=== PATIENT | female | born 1965 | race Two or more races ===

== ENCOUNTER 2025-02-16 16:46 | Inpatient (IN) | payer OTHER ==
[2025-02-16] VITALS (17 sets, daily range): BP systolic 75–131; BP diastolic 48–114; TEMP 97.9; O2SAT 76–92
[~2025-02-16] VITALS: Ht 160 cm; Wt 45.4 kg
[2025-02-16] MEDS ORDERED: ONDANSETRON HCL/PF 4 MG/2 ML VIAL ONE (16:53)
[2025-02-16] MEDS ORDERED: NOREPINEPHRINE 8MG/250ML RTU 250 ML IV ONE (16:54)
[2025-02-16] MEDS: IV NS 0.9% 500 ML BAG IV ONE (16:55)
[2025-02-16] MEDS: NOREPINEPHRINE 8 MG in IV NS 0.9% 250 ML IV ONE (17:00)
[2025-02-16] MEDS ORDERED: CEFTRIAXONE 1 G in IV D5W 50 ML IV ONE (17:00)
[2025-02-16] MEDS ORDERED: PANTOPRAZOLE 80 MG in IV NS 0.9% 500 ML IV ONE (17:00)
[2025-02-16] MEDS: ONDANSETRON HCL/PF - ER 4 MG/2 ML VIAL IV ONE (17:05)
[2025-02-16 17:42] LABS: PLATELET COUNT (AUTO) 318 K/uL (150-450); RED BLOOD CELL COUNT(AUTO) 3.03 MIL/uL (4.0-5.2); RED CELL DISTRIBUTION WIDTH 22.0 % (11.5-15.0); WHITE BLOOD COUNT (AUTO) 28.2 K/uL (4.3-11.0)
[2025-02-16] MEDS: PIPERACILLIN /TAZOBACTAM 3.375 G in IV D5W 50 ML IV ONE (17:45)
[2025-02-16] MEDS ORDERED: ACETAMINOPHEN 650 MG/SUPP.RECT RC ONE (17:46)
[2025-02-16 17:49] LABS: CALCIUM, SERUM 7.5 mg/dL (8.5-10.1); CREATININE 4.1 mg/dL (0.6-1.3); SODIUM SERUM 146 mmol/L (136-145)
[2025-02-16 17:50] LABS: UREA NITROGEN, BLOOD 101 mg/dL (7-18)
[2025-02-16] MEDS: ACETAMINOPHEN 650 MG/SUPP.RECT RC ONE (17:50)
[2025-02-16] MEDS: PANTOPRAZOLE 80 MG in IV NS 0.9% 500 ML IV ONE (17:50)
[2025-02-16 17:51] LABS: INR 1.08 (0.91-1.10)
[2025-02-16 17:54] LABS: ASPARTATE AMINOTRANSFERASE 15 U/L (15-37); TOTAL PROTEIN, SERUM 4.7 g/dL (6.4-8.2)
[2025-02-16 17:55] LABS: LACTIC ACID 1.3 mmol/L (0.4-2.0)
[2025-02-16] MEDS: VANCOMYCIN 1 GM in IV D5W 250 ML IV ONE (18:20)
[2025-02-16] MEDS ORDERED: MAGNESIUM HYDROXIDE 30 ML UDC PO PRN (18:30)
[2025-02-16] MEDS ORDERED: Z GUARD REMEDY 4 OZ OINT TP PRN (18:30)
[2025-02-16] MEDS ORDERED: DOSING PER PHARMACY-CEFEPIME IVPB XX PRN (18:30)
[2025-02-16] MEDS ORDERED: MAG HYDROX/AL HYDROX/SIMETH 30 ML UDC PO PRN (18:30)
[2025-02-16] MEDS ORDERED: DOSING PER PHARMACY-VANCOMYCIN IV IV PRN (19:00)
[2025-02-16] MEDS ORDERED: CARV25TA2 PO (19:06)
[2025-02-16] MEDS ORDERED: PANT40TA49 PO (19:06)
[2025-02-16] MEDS ORDERED: TIOT18CA3 INH (19:06)
[2025-02-16] MEDS ORDERED: ATOR40TA PO (19:06)
[2025-02-16] MEDS ORDERED: FOLI0.8T23 PO (19:06)
[2025-02-16] MEDS ORDERED: ZINC220C6 PO (19:06)
[2025-02-16] MEDS ORDERED: ASCO500T10 PO (19:06)
[2025-02-16] MEDS ORDERED: SUCR1TAB PO (19:06)
[2025-02-16] MEDS ORDERED: ONDA-97 PO ×2 (19:06)
[2025-02-16] MEDS ORDERED: BISA10SU11 RC (19:06)
[2025-02-16] MEDS ORDERED: POLY17PO4 PO (19:06)
[2025-02-16 19:16] LABS: ABG BASE EXCESS -5.3 mmol/L (-2.0-3.0); ABG OXYGEN SATURATION 91.6 % (94.0-98.0); ABG PCO2 26.9 mmHg (32.0-45.0); ABG PH 7.437 (7.350-7.450); ABG PO2 66.0 mmHg (83.0-108.0); ABG TOTAL HEMOGLOBIN 10.7 G/dL (12.0-16.0); FLOW, BLOOD GAS 0.00 L/min (0.00-30.00); FRACTIONATED INSPIRED OXYGEN 21.0 %; SITE, ABG RIGHT BRACHIAL
[2025-02-16 21:28] LABS: PLATELET COUNT (AUTO) 328 K/uL (150-450); RED BLOOD CELL COUNT(AUTO) 3.73 MIL/uL (4.0-5.2); RED CELL DISTRIBUTION WIDTH 21.1 % (11.5-15.0)
[2025-02-16 21:35] LABS: WHITE BLOOD COUNT (AUTO) 32.2 K/uL (4.3-11.0)
[2025-02-16] MEDS: NOREPINEPHRINE 8 MG in IV NS 0.9% 242 ML IV PRN (21:37)
[2025-02-16] MEDS: PANTOPRAZOLE 40 MG VIAL IV SCH (22:21)
[2025-02-16] MEDS: CEFEPIME 1 GM in IV D5W 50 ML IV SCH (22:21)
[2025-02-16] MEDS: BLOOD SUGAR DIAGNOSTIC 1 EACH STRIP VI SCH (22:27)
[2025-02-16] MEDS: DEXTROSE 50%-WATER 50 ML DISP.SYRIN IV PRN (22:34)
[2025-02-16] MEDS: PHENYLEPHRINE 100 MG in IV NS 0.9% 240 ML IV PRN (23:32)
[2025-02-16] MEDS: PHENYLEPHRINE 10 MG/ML VIAL ONE (23:48)
[2025-02-16] MEDS: AMIODARONE 150 MG in IV D5W 100 ML IV ONE (23:50)
[2025-02-16] MEDS: AMIODARONE 150 MG/3 ML VIAL IV ONE (23:51)
[2025-02-17] VITALS (75 sets, daily range): BP systolic 52–132; BP diastolic 31–80; TEMP 97.6–98.2; O2SAT 84–100
[2025-02-17] MEDS: AMIODARONE 450 MG in IV D5W 241 ML IV PRN (00:08)
[2025-02-17] MEDS: AMIODARONE 150 MG/3 ML VIAL IV ONE (00:09)
[2025-02-17] MEDS: ALBUMIN 25% 12.5 GM/50 ML BOTTLE IV ONE (00:42)
[2025-02-17] MEDS: VASOPRESSIN INJ 20 UNIT/ML VIAL ONE (01:04)
[2025-02-17] MEDS: VASOPRESSIN INJ 40 UNIT in IV NS 0.9% 38 ML IV PRN (01:07)
[2025-02-17 02:48] LABS: LYMPHOCYTES % (MANUAL) 14 % (16-48); MONOCYTES % (MANUAL) 3 % (0-11.0); NEUTROPHILS % (MANUAL) 83 (42-76); PLATELET ESTIMATE ADEQUATE
[2025-02-17 07:31] LABS: PLATELET COUNT (AUTO) 287 K/uL (150-450); RED BLOOD CELL COUNT(AUTO) 3.18 MIL/uL (4.0-5.2); RED CELL DISTRIBUTION WIDTH 21.0 % (11.5-15.0); WHITE BLOOD COUNT (AUTO) 28.9 K/uL (4.3-11.0)
[2025-02-17 07:33] LABS: CALCIUM, SERUM 7.8 mg/dL (8.5-10.1); CREATININE 2.4 mg/dL (0.6-1.3); PHOSPHORUS 3.0 mg/dL (2.5-4.9); SODIUM SERUM 146.0 mmol/L (136-145); UREA NITROGEN, BLOOD 57.0 mg/dL (7-18)
[2025-02-17 07:41] LABS: INR 1.05 (0.91-1.10)
[2025-02-17] MEDS: HYDROCORTISONE SOD SUCCINATE 100 MG/2 ML VIAL IV SCH (08:16)
[2025-02-17] MEDS: THERAHONEY GEL 1.5 OZ TUBE TP SCH (09:09)
[2025-02-17 09:19] LABS: IRON, SERUM 51.0 ug/dl (50-175)
[2025-02-17 09:32] LABS: LDL 31.0 mg/dL (0-99)
[2025-02-17] MEDS: POTASSIUM CL. PREMIX PERIPHER. 50 ML IV SCH (10:06)
[2025-02-17 10:19] LABS: LYMPHOCYTES % (MANUAL) 12 % (16-48); MONOCYTES % (MANUAL) 5 % (0-11.0); NEUTROPHILS % (MANUAL) 83 (42-76)
[2025-02-17 10:20] LABS: PLATELET ESTIMATE ADEQUATE
[2025-02-17] MEDS: IV 10% DEXTROSE 1,000 ML IV PRN (12:09)
[2025-02-17] MEDS: *INSULIN REGULAR(HUMULIN R)HUM 100 UNIT/ML VIAL SQ PRN (12:18)
[2025-02-17 12:34] LABS: APPEARANCE,URINE CLOUDY (CLEAR); BLOOD, URINE 2+ Ery/uL (NEGATIVE); LEUKOCYTE ESTERASE ,URINE 2+ (NEGATIVE); NITRITE, URINE POSITIVE (NEGATIVE); UGLUCOSE NEGATIVE (NEGATIVE)
[2025-02-17 12:38] LABS: ADD URINE CULTURE YES; SQUAMOUS EPITHELIAL CELL,UR Few /HPF (None Seen); YEAST,URINE Many /HPF (None Seen)
[2025-02-17] MEDS: DAKINS QUARTER STRENGTH (0.125%) 480 ML BOTTLE TOP SCH (13:55)
[2025-02-17] MEDS ORDERED: MORPHINE SULFATE INJ 4 MG/ML DISP.SYRIN IV PRN (14:00)
[2025-02-17] MEDS: HYDROMORPHONE 1 MG/1 ML DISP.SYRIN IV PRN (14:29)
[2025-02-17] MEDS: MEROPENEM 500 MG in IV NS 0.9% 50 ML IV SCH (15:36)
[2025-02-18] VITALS (39 sets, daily range): BP systolic 90–135; BP diastolic 51–101; TEMP 97.6–97.9; O2SAT 95–100
[2025-02-18] MEDS: BLOOD SUGAR DIAGNOSTIC 1 EACH STRIP VI SCH (02:01)
[2025-02-18 06:38] LABS: PLATELET COUNT (AUTO) 136 K/uL (150-450); RED BLOOD CELL COUNT(AUTO) 2.63 MIL/uL (4.0-5.2); RED CELL DISTRIBUTION WIDTH 21.2 % (11.5-15.0); WHITE BLOOD COUNT (AUTO) 18.5 K/uL (4.3-11.0)
[2025-02-18 07:45] LABS: ASPARTATE AMINOTRANSFERASE 11.0 U/L (15-37); CALCIUM, SERUM 7.2 mg/dL (8.5-10.1); CREATININE 2.9 mg/dL (0.6-1.3); PHOSPHORUS 2.7 mg/dL (2.5-4.9); SODIUM SERUM 140.0 mmol/L (136-145); TOTAL PROTEIN, SERUM 4.5 g/dL (6.4-8.2); UREA NITROGEN, BLOOD 64.0 mg/dL (7-18)
[2025-02-18 08:27] LABS: LYMPHOCYTES % (MANUAL) 9 % (16-48); MONOCYTES % (MANUAL) 1 % (0-11.0); NEUTROPHILS % (MANUAL) 90 (42-76)
[2025-02-18 08:28] LABS: PLATELET ESTIMATE DECREASED
[2025-02-18] MEDS: AMIODARONE HCL 200 MG TABLET PO SCH (09:00)
[2025-02-18] MEDS: INSULIN REGULAR, HUMAN 100 UNIT/ML 3 ML VIAL SQ PRN (11:06)
[2025-02-18] MEDS: EPOETIN ALFA (10,000 UNIT) 10,000 UNIT/ML VIAL SQ SCH (15:00)
[2025-02-19] VITALS (17 sets, daily range): BP systolic 109–151; BP diastolic 67–87; TEMP 97.2–97.8; O2SAT 94–100
[2025-02-19] MEDS: IV 10% DEXTROSE 1,000 ML IV PRN (01:09)
[2025-02-19 04:49] LABS: CALCIUM, SERUM 7.6 mg/dL (8.5-10.1); CREATININE 2.9 mg/dL (0.6-1.3); SODIUM SERUM 139.0 mmol/L (136-145); UREA NITROGEN, BLOOD 68.0 mg/dL (7-18)
[2025-02-19 04:56] LABS: OCCULT BLOOD STOOL POSITIVE (NEGATIVE)
[2025-02-19 13:33] LABS: PLATELET COUNT (AUTO) 143 K/uL (150-450); RED BLOOD CELL COUNT(AUTO) 2.61 MIL/uL (4.0-5.2); RED CELL DISTRIBUTION WIDTH 21.6 % (11.5-15.0); WHITE BLOOD COUNT (AUTO) 19.7 K/uL (4.3-11.0)
[2025-02-19 14:12] LABS: LYMPHOCYTES % (MANUAL) 12 % (16-48); MONOCYTES % (MANUAL) 3 % (0-11.0); NEUTROPHILS % (MANUAL) 85 (42-76); PLATELET ESTIMATE DECREASED
[2025-02-20] MEDS: ACETAMINOPHEN 325 MG TABLET PO PRN (02:38)
[2025-02-20 09:01] VITALS: BP 119/72; TEMP 97.5; O2SAT 100
[2025-02-20] MEDS: GLUCAGON,HUMAN RECOMBINANT 1 MG/VIAL VIAL IV SCH (13:01)
[2025-02-20] MEDS: dexaMETHasone SOD PHOSPHATE 4 MG/ML VIAL IV SCH (13:03)
[2025-02-20 16:14] VITALS: BP 107/81; TEMP 97.5; O2SAT 100
[2025-02-20 20:00] VITALS: BP 132/88; TEMP 97.5; O2SAT 97
[2025-02-21] MEDS: MEROPENEM 500 MG in IV NS 0.9% 50 ML IV SCH (04:29)
[2025-02-21 07:23] LABS: PLATELET COUNT (AUTO) 130 K/uL (150-450); RED BLOOD CELL COUNT(AUTO) 3.04 MIL/uL (4.0-5.2); RED CELL DISTRIBUTION WIDTH 21.5 % (11.5-15.0); WHITE BLOOD COUNT (AUTO) 17.2 K/uL (4.3-11.0)
[2025-02-21 07:30] VITALS: BP 145/88; TEMP 97.3; O2SAT 93
[2025-02-21 07:55] LABS: ASPARTATE AMINOTRANSFERASE 12.0 U/L (15-37); PHOSPHORUS 2.5 mg/dL (2.5-4.9); TOTAL PROTEIN, SERUM 4.6 g/dL (6.4-8.2)
[2025-02-21 08:23] LABS: CALCIUM, SERUM 7.4 mg/dL (8.5-10.1); CREATININE 2.4 mg/dL (0.6-1.3); SODIUM SERUM 131.0 mmol/L (136-145); UREA NITROGEN, BLOOD 40.0 mg/dL (7-18)
[2025-02-21] MEDS: THIAMINE HCL 100 MG TABLET PO SCH (12:29)
[2025-02-21 20:00] VITALS: BP 103/77; TEMP 97.6; O2SAT 95
[2025-02-22 03:12] VITALS: BP 103/77; TEMP 97.6; O2SAT 95
[2025-02-22 08:00] VITALS: BP 155/86; TEMP 97.3; O2SAT 100
[2025-02-22 16:00] VITALS: BP 147/85; TEMP 97.2; O2SAT 100
[2025-02-22 16:09] LABS: CALCIUM, SERUM 6.9 mg/dL (8.5-10.1); CREATININE 1.9 mg/dL (0.6-1.3); SODIUM SERUM 132.0 mmol/L (136-145); UREA NITROGEN, BLOOD 26.0 mg/dL (7-18)
[2025-02-22] MEDS: POTASSIUM CL. PREMIX PERIPHER. 50 ML IV SCH (18:30)
[2025-02-22 20:00] VITALS: BP 147/86; TEMP 97.3; O2SAT 99
[2025-02-23 08:53] LABS: CALCIUM, SERUM 7.3 mg/dL (8.5-10.1); CREATININE 2.3 mg/dL (0.6-1.3); SODIUM SERUM 130.0 mmol/L (136-145); UREA NITROGEN, BLOOD 29.0 mg/dL (7-18)
[2025-02-23 08:56] VITALS: BP 144/90; TEMP 97.5; O2SAT 95
[2025-02-23] MEDS: JEVITY 1.2 CAL 1,000 ML BOTTLE NG SCH (13:12)
[2025-02-23] MEDS: PROPRANOLOL HCL 40 MG TABLET PO SCH (15:00)
[2025-02-23 15:50] LABS: PLATELET COUNT (AUTO) 158 K/uL (150-450); RED BLOOD CELL COUNT(AUTO) 3.42 MIL/uL (4.0-5.2); RED CELL DISTRIBUTION WIDTH 22.3 % (11.5-15.0); WHITE BLOOD COUNT (AUTO) 15.5 K/uL (4.3-11.0)
[2025-02-23] MEDS: VANCOMYCIN 500 MG in IV D5W 100 ML IV PRN (19:22)
[2025-02-23 20:00] VITALS: BP 124/87; TEMP 97.3; O2SAT 96
[2025-02-23 20:24] VITALS: BP 124/87; TEMP 97.3; O2SAT 96
[2025-02-23 21:52] VITALS: BP 135/100
[2025-02-24 01:31] VITALS: BP 120/87; TEMP 95
[2025-02-24] MEDS: dexaMETHasone SOD PHOSPHATE 10 MG/ML VIAL IV ONE (01:57)
[2025-02-24] MEDS: DEXTROSE 50%-WATER 50 ML DISP.SYRIN IVP ONE ×2 (10:44→10:45)
[2025-02-24 11:15] LABS: PLATELET COUNT (AUTO) 98 K/uL (150-450); RED BLOOD CELL COUNT(AUTO) 3.27 MIL/uL (4.0-5.2); RED CELL DISTRIBUTION WIDTH 22.4 % (11.5-15.0); WHITE BLOOD COUNT (AUTO) 11.4 K/uL (4.3-11.0)
[2025-02-24 11:46] LABS: ASPARTATE AMINOTRANSFERASE 16.0 U/L (15-37); CALCIUM, SERUM 7.0 mg/dL (8.5-10.1); CREATININE 1.9 mg/dL (0.6-1.3); PHOSPHORUS 1.8 mg/dL (2.5-4.9); SODIUM SERUM 132.0 mmol/L (136-145); TOTAL PROTEIN, SERUM 4.4 g/dL (6.4-8.2); UREA NITROGEN, BLOOD 22.0 mg/dL (7-18)
[2025-02-24 12:02] LABS: BASOPHILS % (MANUAL) 0 % (0.0-2.0); EOSINOPHILS % (MANUAL) 0 % (0-4); LYMPHOCYTES % (MANUAL) 11 % (16-48); MONOCYTES % (MANUAL) 4 % (0-11.0); NEUTROPHILS % (MANUAL) 85 (42-76); PLATELET ESTIMATE DECREASED
[2025-02-24] MEDS: ALBUMIN 25% 25 GM in PREMIX 1 EA IV SCH (13:14)
[2025-02-24] MEDS: Magnesium 1GM/D5W 100ML PREMIX 100 ML IV SCH (14:29)
[2025-02-24] MEDS ORDERED: K PHOS NEUTRAL 250 MG TABLET NG ONE (15:30)
[2025-02-24] MEDS: POTASSIUM CHLORIDE 20 MEQ POWDER PACKET NG ONE (16:29)
[2025-02-24] MEDS: NEUTRA PHOS 1 POWD.PACKET NG ONE (16:29)
[2025-02-24 20:00] VITALS: BP 140/90; TEMP 95.5; TEMP 97.3; O2SAT 99
[2025-02-24] MEDS: PANTOPRAZOLE 40 MG/PACK PACK GT SCH (21:00)
[2025-02-25 01:04] VITALS: BP 140/90; TEMP 97.5; O2SAT 98
[2025-02-25 07:35] LABS: CALCIUM, SERUM 7.1 mg/dL (8.5-10.1); CREATININE 2.0 mg/dL (0.6-1.3); SODIUM SERUM 131.0 mmol/L (136-145); UREA NITROGEN, BLOOD 22.0 mg/dL (7-18)
[2025-02-25 07:51] LABS: PLATELET COUNT (AUTO) 71 K/uL (150-450); RED BLOOD CELL COUNT(AUTO) 2.70 MIL/uL (4.0-5.2); RED CELL DISTRIBUTION WIDTH 21.2 % (11.5-15.0); WHITE BLOOD COUNT (AUTO) 8.2 K/uL (4.3-11.0)
[2025-02-25 07:55] LABS: PHOSPHORUS 1.9 mg/dL (2.5-4.9)
[2025-02-25 08:00] VITALS: BP 156/75; TEMP 97.7; O2SAT 98
[2025-02-25] MEDS: POTASSIUM CHLORIDE 20 MEQ POWDER PACKET GT SCH (09:26)
[2025-02-25 10:08] LABS: BASOPHILS % (MANUAL) 0 % (0.0-2.0); EOSINOPHILS % (MANUAL) 0 % (0-4); LYMPHOCYTES % (MANUAL) 18 % (16-48); MONOCYTES % (MANUAL) 6 % (0-11.0); NEUTROPHILS % (MANUAL) 76 (42-76); PLATELET ESTIMATE DECREASED
[2025-02-25] MEDS: POTASSIUM CHLORIDE 20 MEQ POWDER PACKET GT ONE (12:03)
[2025-02-25 16:00] VITALS: BP 138/89; TEMP 97.3; O2SAT 96
[2025-02-25 20:00] VITALS: BP 153/93; TEMP 97.5; TEMP 97.9; O2SAT 99
[2025-02-26 07:00] VITALS: BP 162/111; TEMP 97.3; O2SAT 94
[2025-02-26 07:12] LABS: PLATELET COUNT (AUTO) 79 K/uL (150-450); RED BLOOD CELL COUNT(AUTO) 3.38 MIL/uL (4.0-5.2); RED CELL DISTRIBUTION WIDTH 22.0 % (11.5-15.0); WHITE BLOOD COUNT (AUTO) 9.6 K/uL (4.3-11.0)
[2025-02-26 07:27] LABS: CALCIUM, SERUM 7.5 mg/dL (8.5-10.1); CREATININE 1.5 mg/dL (0.6-1.3); SODIUM SERUM 137.0 mmol/L (136-145); UREA NITROGEN, BLOOD 13.0 mg/dL (7-18)
[2025-02-26 07:39] LABS: PHOSPHORUS 1.8 mg/dL (2.5-4.9)
[2025-02-26 08:00] VITALS: BP 162/111; TEMP 97.3; O2SAT 94
[2025-02-26 14:55] LABS: LYMPHOCYTES % (MANUAL) 18 % (16-48); MONOCYTES % (MANUAL) 1 % (0-11.0); NEUTROPHILS % (MANUAL) 81 (42-76); PLATELET ESTIMATE DECREASED
[2025-02-26] MEDS: NEUTRA PHOS 1 POWD.PACKET NG ONE (15:37)
[2025-02-26 16:00] VITALS: BP_SYST 167; BP_DIAS 91; BP_DIAS 96; TEMP 97.4; TEMP 97.9; O2SAT 95
[2025-02-26 21:43] VITALS: BP 157/96; TEMP 98.2; O2SAT 100
[2025-02-27 08:19] VITALS: BP 155/53; TEMP 96.4; O2SAT 100
[2025-02-27 09:11] LABS: PLATELET COUNT (AUTO) 68 K/uL (150-450); RED BLOOD CELL COUNT(AUTO) 3.03 MIL/uL (4.0-5.2); RED CELL DISTRIBUTION WIDTH 21.8 % (11.5-15.0); WHITE BLOOD COUNT (AUTO) 13.9 K/uL (4.3-11.0)
[2025-02-27 09:20] LABS: CALCIUM, SERUM 7.1 mg/dL (8.5-10.1); CREATININE 1.8 mg/dL (0.6-1.3); SODIUM SERUM 134.0 mmol/L (136-145); UREA NITROGEN, BLOOD 15.0 mg/dL (7-18)
[2025-02-27 09:25] LABS: PHOSPHORUS 2.2 mg/dL (2.5-4.9)
[2025-02-27 11:00] LABS: BASOPHILS % (MANUAL) 0 % (0.0-2.0); EOSINOPHILS % (MANUAL) 0 % (0-4); LYMPHOCYTES % (MANUAL) 16 % (16-48); MONOCYTES % (MANUAL) 2 % (0-11.0); NEUTROPHILS % (MANUAL) 82 (42-76); PLATELET ESTIMATE DECREASED
[2025-02-27] MEDS: JEVITY 1.2 CAL 1,000 ML BOTTLE GT SCH (12:46)
[2025-02-27 16:06] VITALS: BP 152/88; TEMP 97.9; O2SAT 95
[2025-02-27] MEDS: ALBUMIN 25% 25 GM in PREMIX 1 EA IV PRN (16:51)
[2025-02-27] MEDS: PROSOURCE / PROSTAT (PYXIS) 30 ML UDC GT SCH (17:43)
[2025-02-27] MEDS: NEPRO 1,000 ML BOTTLE GT PRN (18:19)
[2025-02-27 20:00] VITALS: BP 132/78; TEMP 98.1; O2SAT 96
[2025-02-28 06:33] LABS: PLATELET COUNT (AUTO) 52 K/uL (150-450); RED BLOOD CELL COUNT(AUTO) 2.94 MIL/uL (4.0-5.2); RED CELL DISTRIBUTION WIDTH 21.7 % (11.5-15.0); WHITE BLOOD COUNT (AUTO) 13.1 K/uL (4.3-11.0)
[2025-02-28 06:48] LABS: CALCIUM, SERUM 7.5 mg/dL (8.5-10.1); CREATININE 1.6 mg/dL (0.6-1.3); SODIUM SERUM 135.0 mmol/L (136-145); UREA NITROGEN, BLOOD 12.0 mg/dL (7-18)
[2025-02-28 06:57] LABS: PHOSPHORUS 1.9 mg/dL (2.5-4.9)
[2025-02-28 08:00] VITALS: BP 149/96; TEMP 98.4; O2SAT 100
[2025-02-28] MEDS: POTASSIUM CHLORIDE 20 MEQ POWDER PACKET GT SCH (10:28)
[2025-02-28 11:19] LABS: BASOPHILS % (MANUAL) 0 % (0.0-2.0); EOSINOPHILS % (MANUAL) 0 % (0-4); LYMPHOCYTES % (MANUAL) 16 % (16-48); MONOCYTES % (MANUAL) 3 % (0-11.0); NEUTROPHILS % (MANUAL) 81 (42-76); PLATELET ESTIMATE DECREASED
[2025-02-28] MEDS: ONDANSETRON HCL/PF 4 MG/2 ML VIAL IVP PRN (13:01)
[2025-02-28] MEDS: NEUTRA PHOS 1 POWD.PACKET NG ONE (15:30)
[2025-02-28 16:00] VITALS: BP 150/100; TEMP 98.2; O2SAT 96
[2025-02-28 20:00] VITALS: BP 143/88; TEMP 98.1; O2SAT 99
[2025-02-28 20:29] VITALS: BP 143/88; TEMP 98.1; O2SAT 99
[2025-02-28] MEDS: PANTOPRAZOLE 40 MG VIAL IV SCH (21:53)
[2025-03-01 06:30] LABS: PLATELET COUNT (AUTO) 55 K/uL (150-450); RED BLOOD CELL COUNT(AUTO) 3.10 MIL/uL (4.0-5.2); RED CELL DISTRIBUTION WIDTH 22.1 % (11.5-15.0); WHITE BLOOD COUNT (AUTO) 18.1 K/uL (4.3-11.0)
[2025-03-01 06:45] LABS: CALCIUM, SERUM 7.6 mg/dL (8.5-10.1); CREATININE 1.9 mg/dL (0.6-1.3); SODIUM SERUM 131.0 mmol/L (136-145); UREA NITROGEN, BLOOD 19.0 mg/dL (7-18)
[2025-03-01 08:00] VITALS: BP 138/94; TEMP 97.3; O2SAT 91
[2025-03-01 09:00] VITALS: BP 140/90; O2SAT 96
[2025-03-01 11:44] LABS: LYMPHOCYTES % (MANUAL) 12 % (16-48); MONOCYTES % (MANUAL) 4 % (0-11.0); NEUTROPHILS % (MANUAL) 84 (42-76); PLATELET ESTIMATE DECREASED
[2025-03-01] MEDS ORDERED: EPINEPHRINE (1:1000) 10 MG in IV NS 0.9% 240 ML IV PRN (12:30)
[2025-03-01] MEDS ORDERED: SODIUM BICARBONATE SYR 50 MEQ/50 ML DISP.SYRIN IV ONE (13:58)
[2025-03-01] MEDS ORDERED: CALCIUM CHLORIDE 1,000 MG/10 ML DISP.SYRIN IV ONE (13:58)
[2025-03-01] MEDS ORDERED: EPINEPHRINE (1:10,000) SYRINGE 1 MG/10 ML DISP.SYRIN IVP ONE (13:58)
[2025-03-01 16:00] VITALS: BP 168/90; TEMP 98.2; O2SAT 98
[2025-03-01 16:26] VITALS: BP 168/90; TEMP 98.2; O2SAT 98
== END 2025-03-01 12:50 | DRG 720 ==
LOC: ER 16:46 → ICU 19:14 → TELE 02-19 10:14 → MED 02-19 11:57
PROVIDERS: ADMIT Internal Medicine; ATTEND Nurse Practitioner Family
PROC: 5A1D70Z Performance of Urinary Filtration, Intermittent, Less than 6 Hours Per Day (ICD-10-PCS; principal; 2025-02-16)
PROC: 30233N1 Transfusion of Nonautologous Red Blood Cells into Peripheral Vein, Percutaneous Approach (ICD-10-PCS; 2025-02-16)
PROC: 02HV33Z Insertion of Infusion Device into Superior Vena Cava, Percutaneous Approach (ICD-10-PCS; 2025-02-26)
PROC: B548ZZA Ultrasonography of Superior Vena Cava, Guidance (ICD-10-PCS; 2025-02-26)
PROC: 5A12012 Performance of Cardiac Output, Single, Manual (ICD-10-PCS; 2025-03-01)
PROC: 0BH18EZ Insertion of Endotracheal Airway into Trachea, Via Natural or Artificial Opening Endoscopic (ICD-10-PCS; 2025-03-01)
DX: A41.9 Sepsis, unspecified organism (principal); R65.21 Severe sepsis with septic shock; I33.0 Acute and subacute infective endocarditis; I13.2 Hypertensive heart and chronic kidney disease with heart failure and with stage 5 chronic kidney disease, or end stage renal disease; J96.01 Acute respiratory failure with hypoxia; G93.41 Metabolic encephalopathy; E43 Unspecified severe protein-calorie malnutrition; L89.323 Pressure ulcer of left buttock, stage 3; L89.154 Pressure ulcer of sacral region, stage 4; K92.2 Gastrointestinal hemorrhage, unspecified; I50.9 Heart failure, unspecified; N18.6 End stage renal disease; I21.A1 Myocardial infarction type 2; D64.9 Anemia, unspecified; E78.5 Hyperlipidemia, unspecified; E87.0 Hyperosmolality and hypernatremia; E87.6 Hypokalemia; E88.09 Other disorders of plasma-protein metabolism, not elsewhere classified; I48.0 Paroxysmal atrial fibrillation; K76.6 Portal hypertension; R13.10 Dysphagia, unspecified; R18.8 Other ascites; N39.0 Urinary tract infection, site not specified; J44.9 Chronic obstructive pulmonary disease, unspecified; I95.9 Hypotension, unspecified; E83.89 Other disorders of mineral metabolism; K74.60 Unspecified cirrhosis of liver; K83.1 Obstruction of bile duct; S90.32XA Contusion of left foot, initial encounter; S90.31XA Contusion of right foot, initial encounter; X58.XXXA Exposure to other specified factors, initial encounter; Y93.9 Activity, unspecified; Y92.89 Other specified places as the place of occurrence of the external cause; M24.571 Contracture, right ankle; M24.572 Contracture, left ankle; I35.8 Other nonrheumatic aortic valve disorders; E80.6 Other disorders of bilirubin metabolism; E16.2 Hypoglycemia, unspecified; L98.8 Other specified disorders of the skin and subcutaneous tissue; D62 Acute posthemorrhagic anemia; Z68.1 Body mass index [BMI] 19.9 or less, adult; R62.7 Adult failure to thrive; Z99.2 Dependence on renal dialysis; K25.7 Chronic gastric ulcer without hemorrhage or perforation
CPT/HCPCS: 36415; 36600; 71045-TC; 74018; 76700-TC; 80048-TC; 80053-TC; 80061-TC; 80076-TC; 80202-TC; 81001; 82040-TC; 82272-TC; 82533; 82728-TC; 82803-TC; 82945-TC; 82962-TC; 83525; 83540-TC; 83605-TC; 83690-TC; 83735-TC; 83880; 84100-TC; 84436-TC; 84439-TC; 84443-TC; 84484-TC; 85025-TC; 85027-TC; 85610-TC; 85730-TC; 86707; 86803; 86850-TC; 87040-TC; 87070-TC; 87081-TC; 87086-TC; 87186-TC; 87340; 87350; 90935-TC; 92526; 92611; 93307-TC; 97110-TC; 97112-TC; 97530-TC; 97535-TC; A4216; A4223; A6253; A6403; G0378; J0169; J0282; J0692; J0696; J0885; J1100; J1171; J1610; J1720; J1815; J2185; J2405; J2470; J2543; J3373; J3475; J3480; J3490; J7030; J7040; J7050; J7060; P9016; P9047